=== PATIENT | male | born 1990 | race Caucasian/White ===

== ENCOUNTER 2021-05-26 03:11 | Emergency (ER) | payer BC ==
[2021-05-26 04:22] LABS: HEMOGLOBIN 13.8 gm/dl (14.0-17.5); RED BLOOD COUNT 4.72 M/UL (4.20-5.50); WHITE BLOOD COUNT 5.2 K/UL (4.5-11.0)
[2021-05-26 04:42] LABS: BUN/CREATININE RATIO 12 (0-10)
[2021-05-26] MEDS ORDERED: ZOFRAN ODT 4 MG4 MG PO (09:09)
[2021-05-26] MEDS ORDERED: IBUPROFEN800 MG PO (09:09)
== END 2021-05-26 09:20 | disposition home or self-care (01) ==
LOC: ER1 03:11
PROVIDERS: Physician Assistant
DX: K80.20 Calculus of gallbladder without cholecystitis without obstruction (principal)
CPT/HCPCS: 71045; 76705; 80053; 81001; 83690; 85025; 99284